=== PATIENT | male | born 1950 | race Caucasian/White ===

== ENCOUNTER 2019-12-16 10:40 | Inpatient (IN) | payer OTHER ==
[~2019-12-16] VITALS: Ht 175.3 cm; Wt 70.9 kg
[2019-12-16 11:25] LABS: UA SPECIFIC GRAVITY 1.025 (1.005-1.035); microscopic required? YES; urine erythrocyte 1+ (NEGATIVE)
[2019-12-16 11:33] LABS: BASOPHIL % 0.1 % (0-2); PLATELET COUNT 271 x10^3mcL (130-400); RED CELL DISTRIBUTION WIDTH 13.6 % (11.5-14.5)
[2019-12-16 12:06] LABS: CALCIUM 9.2 mg/dL (8.5-10.1); CARBON DIOXIDE 27.7 mmol/L (21-32); CHLORIDE SERUM 96 mmol/L (98-107); GLUCOSE SERUM 106 mg/dL (74-106); POTASSIUM SERUM 3.8 mmol/L (3.5-5.1); SODIUM SERUM 131 mmol/L (136-145)
[2019-12-16 12:17] LABS: ALKALINE PHOSPHATASE 147 U/L (46-116); ALT/SGPT 106 U/L (16-63); AST/SGOT 61 U/L (15-37); BILIRUBIN TOTAL 1.1 mg/dL (0.20-1.00); LACTIC DEHYDROGENASE (LDH) 285 U/L (100-190); TOTAL PROTEIN, SERUM 7.8 g/dL (6.4-8.2)
[2019-12-16 12:18] LABS: ALBUMIN 2.8 g/dL (3.4-5.0)
[2019-12-16] MEDS ORDERED: V12I10 IM (13:26)
[2019-12-16] MEDS ORDERED: [UNRECOGNIZED DRUG - OTHER] MC (13:26)
[2019-12-16] MEDS ORDERED: TRIAMCINOLONE M1 POW (13:27)
[2019-12-16] MEDS ORDERED: MONTELUKAST SOD (13:27)
[2019-12-16] MEDS ORDERED: LEVO-T200 MCG PO (13:27)
[2019-12-16] MEDS ORDERED: ACETAMINOPHEN650 M6 PO (13:28)
[2019-12-16] MEDS ORDERED: LEVALBUTEROL TA15 GM IH (13:28)
[2019-12-16 14:24] VITALS: BP 123/60
[2019-12-16 14:35] VITALS: Ht 175.3 cm; Wt 70.9 kg
[2019-12-16 15:16] VITALS: BP 123/60
[2019-12-16 16:55] VITALS: BP 126/71
[2019-12-16 20:23] VITALS: BP 110/61
[2019-12-17 06:21] VITALS: BP 111/61
[2019-12-17 07:17] LABS: PLATELET COUNT 285 x10^3mcL (130-400)
[2019-12-17 07:31] LABS: BASOPHIL % 0 % (0-2)
[2019-12-17 07:34] LABS: ALKALINE PHOSPHATASE 151 U/L (46-116); ALT/SGPT 77 U/L (16-63); AST/SGOT 37 U/L (15-37); BILIRUBIN DIRECT 0.18 mg/dL (0.0-0.2); BILIRUBIN TOTAL 0.4 mg/dL (0.20-1.00); CALCIUM 8.9 mg/dL (8.5-10.1); CARBON DIOXIDE 25.9 mmol/L (21-32); CHLORIDE SERUM 103 mmol/L (98-107); CREATININE SERUM 0.8 mg/dL (0.7-1.3); GLUCOSE SERUM 134 mg/dL (74-106); POTASSIUM SERUM 3.5 mmol/L (3.5-5.1); SODIUM SERUM 140 mmol/L (136-145); TOTAL PROTEIN, SERUM 7.2 g/dL (6.4-8.2)
[2019-12-17 07:35] LABS: ALBUMIN 2.4 g/dL (3.4-5.0)
[2019-12-17 08:00] VITALS: BP 112/62
[2019-12-17 10:16] LABS: rbc morphology (normal/abnorm) NORMAL (NORMAL)
[2019-12-17] MEDS ORDERED: COLACE100 MG PO (11:52)
[2019-12-17] MEDS ORDERED: TYL650S PO (11:56)
[2019-12-17 13:06] VITALS: BP 117/64
[2019-12-17 17:31] VITALS: BP 110/62
[2019-12-18 05:45] VITALS: BP 120/60
[2019-12-18 07:29] LABS: PLATELET COUNT 316 x10^3mcL (130-400); RED CELL DISTRIBUTION WIDTH 14.2 % (11.5-14.5)
[2019-12-18 07:58] LABS: BILIRUBIN DIRECT 0.14 mg/dL (0.0-0.2); BILIRUBIN TOTAL 0.32 mg/dL (0.20-1.00); TOTAL PROTEIN, SERUM 7.1 g/dL (6.4-8.2)
[2019-12-18 07:59] LABS: ALBUMIN 2.4 g/dL (3.4-5.0)
[2019-12-18 08:13] LABS: BASOPHIL % 0 % (0-2)
[2019-12-18 08:41] LABS: CALCIUM 9.4 mg/dL (8.5-10.1); CARBON DIOXIDE 25.2 mmol/L (21-32); CHLORIDE SERUM 107 mmol/L (98-107); CREATININE SERUM 0.8 mg/dL (0.7-1.3); GLUCOSE SERUM 159 mg/dL (74-106); SODIUM SERUM 142 mmol/L (136-145)
[2019-12-18 09:00] VITALS: BP 118/62
[2019-12-18 12:30] VITALS: BP 110/64
[2019-12-18 18:31] VITALS: BP 112/61
[2019-12-18 21:44] VITALS: BP 121/63
[2019-12-19 06:58] VITALS: BP 121/63
[2019-12-19 06:58] LABS: BASOPHIL % 0.1 % (0-2); PLATELET COUNT 354 x10^3mcL (130-400); RED CELL DISTRIBUTION WIDTH 14.4 % (11.5-14.5)
[2019-12-19 07:28] LABS: BILIRUBIN DIRECT 0.12 mg/dL (0.0-0.2); BILIRUBIN TOTAL 0.29 mg/dL (0.20-1.00); TOTAL PROTEIN, SERUM 6.7 g/dL (6.4-8.2)
[2019-12-19 07:36] LABS: ALBUMIN 2.4 g/dL (3.4-5.0)
[2019-12-19 07:59] LABS: CALCIUM 8.3 mg/dL (8.5-10.1); CARBON DIOXIDE 24.1 mmol/L (21-32); CHLORIDE SERUM 103 mmol/L (98-107); CREATININE SERUM 0.8 mg/dL (0.7-1.3); GLUCOSE SERUM 138 mg/dL (74-106); POTASSIUM SERUM 3.9 mmol/L (3.5-5.1); SODIUM SERUM 137 mmol/L (136-145)
[2019-12-19 08:35] VITALS: BP 118/83
[2019-12-19 12:30] VITALS: BP 126/81
[2019-12-19 17:45] VITALS: BP 119/67
[2019-12-19 20:21] VITALS: BP 122/63
[2019-12-20 05:42] VITALS: BP 114/64
[2019-12-20 06:36] LABS: PLATELET COUNT 368 x10^3mcL (130-400); RED CELL DISTRIBUTION WIDTH 14.1 % (11.5-14.5)
[2019-12-20 07:11] LABS: BASOPHIL % 0 % (0-2)
[2019-12-20 07:20] LABS: CALCIUM 8.5 mg/dL (8.5-10.1); CARBON DIOXIDE 25.8 mmol/L (21-32); CHLORIDE SERUM 104 mmol/L (98-107); CREATININE SERUM 0.8 mg/dL (0.7-1.3); GLUCOSE SERUM 115 mg/dL (74-106); POTASSIUM SERUM 3.8 mmol/L (3.5-5.1); SODIUM SERUM 139 mmol/L (136-145)
[2019-12-20 07:38] LABS: BILIRUBIN DIRECT 0.13 mg/dL (0.0-0.2); BILIRUBIN TOTAL 0.31 mg/dL (0.20-1.00); TOTAL PROTEIN, SERUM 7.2 g/dL (6.4-8.2)
[2019-12-20 07:43] LABS: ALBUMIN 2.4 g/dL (3.4-5.0)
[2019-12-20 08:38] VITALS: BP 125/68
[2019-12-20 12:25] VITALS: BP 126/62
[2019-12-20 17:07] VITALS: BP 106/55
[2019-12-20 19:56] VITALS: BP 122/57
[2019-12-21 06:28] VITALS: BP 106/56
[2019-12-21 07:12] LABS: CALCIUM 8.1 mg/dL (8.5-10.1); CARBON DIOXIDE 28.1 mmol/L (21-32); CHLORIDE SERUM 103 mmol/L (98-107); CREATININE SERUM 0.8 mg/dL (0.7-1.3); GLUCOSE SERUM 119 mg/dL (74-106); POTASSIUM SERUM 3.7 mmol/L (3.5-5.1); SODIUM SERUM 138 mmol/L (136-145)
[2019-12-21 07:26] LABS: PLATELET COUNT 375 x10^3mcL (130-400); RED CELL DISTRIBUTION WIDTH 13.9 % (11.5-14.5)
[2019-12-21 08:15] LABS: BASOPHIL % 0 % (0-2)
[2019-12-21 08:45] VITALS: BP 123/63
[2019-12-21 12:59] VITALS: BP 110/60
[2019-12-21 16:32] VITALS: BP 116/59
[2019-12-21 21:19] VITALS: BP 109/64
[2019-12-22 04:24] VITALS: BP 111/62
[2019-12-22 07:05] LABS: PLATELET COUNT 394 x10^3mcL (130-400)
[2019-12-22 07:14] LABS: BASOPHIL % 0 % (0-2)
[2019-12-22 08:26] VITALS: BP 108/59
[2019-12-22 11:53] VITALS: BP 117/55
[2019-12-22 16:55] VITALS: BP 118/61
[2019-12-22 20:51] VITALS: BP 108/62
[2019-12-23 05:41] VITALS: BP 117/64
[2019-12-23 07:30] LABS: RED CELL DISTRIBUTION WIDTH 14.1 % (11.5-14.5)
[2019-12-23 07:40] LABS: BASOPHIL % 0 % (0-2); PLATELET COUNT 413 x10^3mcL (130-400)
[2019-12-23 07:47] LABS: CALCIUM 8.6 mg/dL (8.5-10.1); CARBON DIOXIDE 27.4 mmol/L (21-32); CHLORIDE SERUM 101 mmol/L (98-107); CREATININE SERUM 0.8 mg/dL (0.7-1.3); GLUCOSE SERUM 140 mg/dL (74-106); POTASSIUM SERUM 4.2 mmol/L (3.5-5.1); SODIUM SERUM 136 mmol/L (136-145)
[2019-12-23 08:42] VITALS: BP 117/65
[2019-12-23 12:03] VITALS: BP 112/59
[2019-12-23 16:33] VITALS: BP 112/58
[2019-12-23 21:15] VITALS: BP 109/55
[2019-12-24 06:14] VITALS: BP 116/65
[2019-12-24 07:04] LABS: BASOPHIL % 0.1 % (0-2); RED CELL DISTRIBUTION WIDTH 14.5 % (11.5-14.5)
[2019-12-24 07:21] LABS: PLATELET COUNT 414 x10^3mcL (130-400)
[2019-12-24 07:44] LABS: CALCIUM 8.7 mg/dL (8.5-10.1); CARBON DIOXIDE 27.9 mmol/L (21-32); CHLORIDE SERUM 100 mmol/L (98-107); CREATININE SERUM 0.8 mg/dL (0.7-1.3); GLUCOSE SERUM 163 mg/dL (74-106); POTASSIUM SERUM 4.5 mmol/L (3.5-5.1); SODIUM SERUM 136 mmol/L (136-145)
[2019-12-24 08:19] VITALS: BP 120/61
[2019-12-24 12:04] VITALS: BP 113/61
[2019-12-24 16:26] VITALS: BP 106/56
[2019-12-24 19:56] VITALS: BP 119/75
[2019-12-25 05:25] VITALS: BP 111/62
[2019-12-25 07:14] LABS: BASOPHIL % 0 % (0-2); PLATELET COUNT 453 x10^3mcL (130-400)
[2019-12-25 07:26] LABS: CALCIUM 8.7 mg/dL (8.5-10.1); CARBON DIOXIDE 29.1 mmol/L (21-32); CHLORIDE SERUM 99 mmol/L (98-107); CREATININE SERUM 0.8 mg/dL (0.7-1.3); GLUCOSE SERUM 133 mg/dL (74-106); POTASSIUM SERUM 4.2 mmol/L (3.5-5.1); SODIUM SERUM 134 mmol/L (136-145)
[2019-12-25 08:54] VITALS: BP 118/69
[2019-12-25 12:36] VITALS: BP 118/63
[2019-12-25 16:23] VITALS: BP 110/63
[2019-12-25 19:50] VITALS: BP 120/64
[2019-12-26 04:53] VITALS: BP 114/62
[2019-12-26 06:55] LABS: RED CELL DISTRIBUTION WIDTH 14.4 % (11.5-14.5)
[2019-12-26 07:19] LABS: CALCIUM 8.8 mg/dL (8.5-10.1); CARBON DIOXIDE 31.5 mmol/L (21-32); CHLORIDE SERUM 99 mmol/L (98-107); CREATININE SERUM 0.8 mg/dL (0.7-1.3); GLUCOSE SERUM 136 mg/dL (74-106); POTASSIUM SERUM 4.5 mmol/L (3.5-5.1); SODIUM SERUM 134 mmol/L (136-145)
[2019-12-26 07:22] LABS: BASOPHIL % 0 % (0-2); PLATELET COUNT 401 x10^3mcL (130-400)
[2019-12-26 10:00] VITALS: BP 137/62
[2019-12-26 12:22] VITALS: BP 113/61
[2019-12-26 18:00] VITALS: BP 117/64
[2019-12-26 20:29] VITALS: BP 109/60
[2019-12-27 05:05] VITALS: BP 122/70
[2019-12-27 06:54] LABS: BASOPHIL % 0.1 % (0-2); PLATELET COUNT 377 x10^3mcL (130-400); RED CELL DISTRIBUTION WIDTH 14.4 % (11.5-14.5)
[2019-12-27 07:07] LABS: CALCIUM 8.9 mg/dL (8.5-10.1); CARBON DIOXIDE 33.3 mmol/L (21-32); CHLORIDE SERUM 98 mmol/L (98-107); CREATININE SERUM 0.9 mg/dL (0.7-1.3); GLUCOSE SERUM 114 mg/dL (74-106); POTASSIUM SERUM 4.5 mmol/L (3.5-5.1); SODIUM SERUM 133 mmol/L (136-145)
[2019-12-27 08:30] VITALS: BP 100/56
[2019-12-27 13:00] VITALS: BP 110/64
[2019-12-27 18:00] VITALS: BP 109/50
[2019-12-27 20:36] VITALS: BP 112/60
[2019-12-28 05:33] VITALS: BP 107/63
[2019-12-28 06:58] LABS: PLATELET COUNT 362 x10^3mcL (130-400); RED CELL DISTRIBUTION WIDTH 13.9 % (11.5-14.5)
[2019-12-28 07:19] LABS: CALCIUM 8.3 mg/dL (8.5-10.1); CARBON DIOXIDE 32.7 mmol/L (21-32); CHLORIDE SERUM 99 mmol/L (98-107); GLUCOSE SERUM 96 mg/dL (74-106); POTASSIUM SERUM 4.1 mmol/L (3.5-5.1); SODIUM SERUM 135 mmol/L (136-145)
[2019-12-28 07:21] LABS: BASOPHIL % 0 % (0-2)
[2019-12-28 12:49] VITALS: BP 100/54
[2019-12-28 16:07] VITALS: BP 107/60
[2019-12-28 21:00] VITALS: BP 106/57
[2019-12-29 05:35] VITALS: BP 94/46
[2019-12-29 07:10] LABS: BASOPHIL % 0.4 % (0-2); PLATELET COUNT 297 x10^3mcL (130-400); RED CELL DISTRIBUTION WIDTH 14.3 % (11.5-14.5)
[2019-12-29 07:27] LABS: CALCIUM 8.2 mg/dL (8.5-10.1); CARBON DIOXIDE 30.8 mmol/L (21-32); CHLORIDE SERUM 100 mmol/L (98-107); CREATININE SERUM 0.7 mg/dL (0.7-1.3); GLUCOSE SERUM 95 mg/dL (74-106); POTASSIUM SERUM 3.8 mmol/L (3.5-5.1); SODIUM SERUM 134 mmol/L (136-145)
[2019-12-29 08:31] VITALS: BP 97/54
[2019-12-29 12:27] VITALS: BP 106/57
[2019-12-29 16:11] VITALS: BP 113/56
[2019-12-29 19:48] VITALS: BP 110/60
[2019-12-30 05:34] VITALS: BP 101/58
[2019-12-30 08:00] VITALS: BP 109/53
[2019-12-30 17:51] VITALS: BP 111/57
[2019-12-30 20:23] VITALS: BP 99/54
[2019-12-31 06:05] VITALS: BP 111/56
[2019-12-31 08:26] VITALS: BP 112/63
[2019-12-31 12:28] VITALS: BP 103/56
[2019-12-31 16:55] VITALS: BP 118/70
== END 2019-12-31 21:13 | disposition other institution (70) | DRG 177 ==
LOC: ED 10:40 → DU 12:48
PROVIDERS: Emergency Medicine; ADMIT Internal Medicine; ATTEND Internal Medicine
PROC: XW033E5 Introduction of Remdesivir Anti-infective into Peripheral Vein, Percutaneous Approach, New Technology Group 5 (ICD-10-PCS; principal; 2019-12-16)
PROC: XW13325 Transfusion of Convalescent Plasma (Nonautologous) into Peripheral Vein, Percutaneous Approach, New Technology Group 5 (ICD-10-PCS; 2019-12-16)
DX: U07.1 COVID-19 (principal); J18.9 Pneumonia, unspecified organism; J96.01 Acute respiratory failure with hypoxia; E44.0 Moderate protein-calorie malnutrition; D68.59 Other primary thrombophilia; N39.0 Urinary tract infection, site not specified; J45.901 Unspecified asthma with (acute) exacerbation; J44.9 Chronic obstructive pulmonary disease, unspecified; M19.90 Unspecified osteoarthritis, unspecified site; M48.00 Spinal stenosis, site unspecified; E03.9 Hypothyroidism, unspecified; K21.9 Gastro-esophageal reflux disease without esophagitis; B96.4 Proteus (mirabilis) (morganii) as the cause of diseases classified elsewhere; D64.9 Anemia, unspecified; Z79.899 Other long term (current) drug therapy; Z79.2 Long term (current) use of antibiotics; Z79.891 Long term (current) use of opiate analgesic; Z79.01 Long term (current) use of anticoagulants; Z68.26 Body mass index [BMI] 26.0-26.9, adult
CPT/HCPCS: 36600; 83880; 85378; 94150; 97116-GP; 97530-GP; G0378; J0456; J0696; J1100; J1650; J3535; J7030; J7050; J7060; J8540; Q0092; U0003-CS